=== PATIENT | male | born 2000 | race Caucasian/White ===

== ENCOUNTER 2020-10-09 17:27 | Inpatient (IN) ==
[2020-10-09 18:09] LABS: Bilirubin,Urine Negative (Negative); Blood,Urine Negative (Negative); Clarity,Urine Clear (Clear); Color,Urine Yellow (Yellow); Glucose,Urine (UA) Normal (Normal); Ketones,Urine Negative (Negative); Leukocyte Esterase,Urine Negative (Negative); Nitrite,Urine Negative (Negative); Protein,Urine Trace mg/dL (Neg-Trace)
[2020-10-09 18:10] LABS: Basophils # 0.1 K/mcL (0.0-0.2); Basophils % 1.2 %; Eosinophils # 0.1 K/mcL (0.0-0.6); Eosinophils % 1.3 %; Hematocrit 46.8 % (37.5-50.1); Hemoglobin 15.2 g/dL (12.9-16.9); Immature Granulocytes % 0.4 % (0-4); Lymphocytes # 2.9 K/mcL (0.6-4.6); Lymphocytes % 34.4 %; Mean Corpuscular HGB Conc 32.5 g/dL (31.6-35.5); Mean Corpuscular Hemoglobin 29.3 pg (28.0-33.3); Mean Corpuscular Volume 90.3 fL (83.0-100.0); Mean Platelet Volume 9.9 fL (9.4-12.4); Monocytes # 0.5 K/mcL (0.0-1.3); Monocytes % 6.1 %; Neutrophils # 4.8 K/mcL (1.6-8.9); Platelet Count 278 K/mcL (140-400); Red Blood Count 5.18 M/mcL (4.19-5.50); Red Cell Distribution Width 12.3 % (11.5-14.5); Segmented Neutrophils % 56.6 %; White Blood Count 8.4 K/mcL (4.3-11.1)
[2020-10-09 18:19] LABS: Amphetamine Screen,Urine Negative ng/mL (Cutoff=1000); Barbiturate Screen,Urine Negative ng/mL (Cutoff=200); Benzodiazepines Screen,Urine Negative ng/mL (Cutoff=200); Cannabinoid Screen,Urine Negative ng/mL (Cutoff = 50); Cocaine Screen,Urine Negative ng/mL (Cutoff= 300); Opiate Screen,Urine Negative ng/mL (Cutoff=300); Phencyclidine Screen,Urine Negative ng/mL (Cutoff=25)
[2020-10-09 18:26] LABS: Estimated Average Glucose 111 mg/dl; Hemoglobin A1C 5.5 %
[2020-10-09 18:32] LABS: Acetaminophen < 10 mcg/mL (10-20); BUN/Creatinine Ratio 20 (6-26); Blood Urea Nitrogen 16 mg/dL (6-20); Calcium 10.4 mg/dL (8.6-10.3); Carbon Dioxide 29 mEq/L (23-29); Chloride 102 mEq/L (98-107); Chol/HDL Ratio 5.8 (0-4.9); Cholesterol 202 mg/dL (< 200); Ethanol < 10 mg/dL (Less than 10); Glucose 92 mg/dL (70-105); HDL Cholesterol 35 mg/dL (40-59); LDL Cholesterol,Calculated 121 mg/dL (< 100); Osmolality,Calculated 289 (280-300); Potassium 4.1 mEq/L (3.5-5.1); Salicylate < 2.5 mg/dL (15.0-30.0); Sodium 139 mEq/L (136-145); Triglycerides 230 mg/dL (< 150); eGFR For African Americans > 60 (> 60); eGFR For Non-African Americans > 60 (> 60)
[2020-10-09] MEDS ORDERED: Acetaminophen 325 MG TABLET PO PRN (20:52)
[2020-10-09] MEDS ORDERED: Mag Hydrox/Al Hydrox/Simeth 30 ML UDC PO PRN (20:52)
[2020-10-09] MEDS ORDERED: hydrOXYzine pamoate 25 MG CAPSULE PO PRN (20:52)
[2020-10-09] MEDS ORDERED: *HR* LORazepam 1 MG TABLET PO PRN (20:52)
[2020-10-09] MEDS ORDERED: Haloperidol Lactate 5 MG/ML VIAL IM PRN (20:52)
[2020-10-09] MEDS ORDERED: haloperidoL 5 MG TABLET PO PRN (20:52)
[2020-10-09] MEDS ORDERED: MOM Conc 10 ML UD.LIQ PO PRN (20:52)
[2020-10-09] MEDS ORDERED: *HR* LORazepam 2 MG/ML VIAL IM PRN (20:52)
[2020-10-09] MEDS ORDERED: traZODone 50 MG TABLET PO PRN (20:52)
[2020-10-10] MEDS: ARIPiprazole 10 MG TABLET PO SCH (15:06)
[2020-10-10] MEDS: BuPROPion XL (24 HR) 150 MG TABLET PO ONE (15:07)
[2020-10-11] MEDS: ARIPiprazole 10 MG TABLET PO SCH (09:10)
[2020-10-11] MEDS: BuPROPion XL (24 HR) 150 MG TABLET PO SCH (09:10)
[2020-10-12] MEDS: BuPROPion XL (24 HR) 150 MG TABLET PO SCH (09:05)
[2020-10-12] MEDS: ARIPiprazole 10 MG TABLET PO SCH (09:05)
[2020-10-13] MEDS: BuPROPion XL (24 HR) 150 MG TABLET PO SCH (09:13)
[2020-10-13] MEDS: ARIPiprazole 10 MG TABLET PO SCH (09:13)
[2020-10-14] MEDS: ARIPiprazole 10 MG TABLET PO SCH (10:01)
[2020-10-15 08:50] VITALS: BP 126/82
[2020-10-15] MEDS: ARIPiprazole 10 MG TABLET PO SCH (09:42)
== END 2020-10-15 11:15 | disposition home or self-care (01) | DRG 885 ==
LOC: EMEROOARM 17:27 → 1ANU 20:44
PROVIDERS: ADMIT Psychiatry & Neurology Psychiatry; ATTEND Psychiatry & Neurology Psychiatry